=== PATIENT | male | born 1985 | race Caucasian/White ===

== ENCOUNTER 2020-10-12 11:02 | Emergency (ER) | payer OTHER, SELFPAY ==
[2020-10-12 11:03] VITALS: BP 141/100; PULSE 74; RESP 17; TEMP 36.2; O2SAT 97; BMI 40.7
--- NOTE | 2020-10-12 11:21 | ED.DCSUM_ITS ---
History of Present Illness Chief Complaint: Lower Extremity Injury Informant: Patient Narrative: Patient states that he has left knee pain. Symptoms began a little bit last night but were significantly worse this morning. He points to the area just inferior to the patella as the source of his pain. Notes it is tender to palpation. He states that it feels worse with flexion and full extension but if he has a slight bend in it it feels better. He denies any history of gout or arthritis. He denies any fevers. No breaks in the skin. No history of IV drug use. No prior history of DVT PE. Past Medical History - Allergies and Home Meds Allergies/Adverse Reactions: Allergies No Known Allergies Allergy (Verified 10/12/20 11:02) Primary Care Physician: [place] [place] [Primary Care Provider] - Past Medical History: None Surgical History: noncontributory Lives: Spouse/ Significant Other Smoking Status: Current every day smoker Drugs: None Review of Systems General: Denies: Chills, Fever, Sweats Eyes: Denies: Visual changes - bilaterally, Diplopia ENT: Denies: Rhinorrhea, Sore throat Cardiovascular: Denies: Chest pain, Palpitations Respiratory: Denies: Dyspnea, Cough, Dyspnea on exertion Gastrointestinal: Denies: Abdominal pain, Nausea, Vomiting, Diarrhea, Melena, Hematochezia Genitourinary: Denies: Dysuria, Hematuria, Frequency Musculoskeletal: Reports: Extremity Pain. Denies: Back pain Skin: Denies: Rash, Wounds Neurological: Denies: Headache, Weakness, Numbness Physical Exam Vital Signs/Narrative: Vital Signs Temp Pulse Resp BP Pulse Ox 10/12/20 11:03 97.1 F L 74 17 141/100 H 97 Inital Vital Signs reviewed: Yes General: Well nourished, Well developed, No Acute Distress Head: Normocephalic, Atraumatic Eyes: Perrl, EOMI ENT: Moist mucous membranes, No rhinorrhea Neck: Supple, Nontender Cardiovascular: Regular rate, Regular rhythm, No murmurs Respiratory: No distress, CTA bilaterally, Chest nontender Abdomen: Soft, Nontender, Nondistended, Normal bowel sounds Back: Nontender, Normal Inspection Extremities: No edema, Tenderness - She has focal tenderness over the inferior aspect of the patella along the patellar tendon. No effusion. No erythema of the skin., - - Distal to the knee the skin appears normal. Strong dorsalis pe dis posterior tibial pulse. There is no calf tenderness or swelling. Skin: Normal color, No rash Neurological: Alert, Oriented x3, Cranial nerves II-XII grossly intact, Normal Strength, Normal Sensation Psychological: Normal affect, Normal Mood Diagnostic/Tx/Re-eval Clinical Impression(s) from Imaging Studies Knee X-Ray 10/12/20 11:29 IMPRESSION: Normal x-ray examination of the knee. Electronically Signed: Jann Eugene, at 11:39 EST , Service support , - Medical Decision Making X-rays of the knee were negative. Clinically the patient has focal tenderness along the patellar tendon. I do not appreciate any significant swelling. Will use Tristan wrap and crutches as needed. Ice. Did do a short course of steroids and anti-inflammatories. Follow-up with primary care in 1 week if not improved. Return if worsening or concerns. ED Disposition - Plan for ED Patient: Disposition: Home or Assisted Living Diagnosis: Patellar tendonitis of left knee Prescriptions: Ibuprofen [Motrin] 800 mg PO TID PRN PRN #20 tab PRN Reason: Pain Prescription Printed predniSONE tablet 60 mg PO DAILY #15 tab Prescription Printed [facility]errals: [facility] [Primary Care Provider] - 1 Week if not improving
--- NOTE | 2020-10-12 11:29 | RAD_ITS ---
STUDY: X-RAY - LEFT KNEE REASON FOR EXAM: Male, 35 years old. PAIN, NKI TECHNIQUE: 4 view(s) of the knee. COMPARISON: None. FINDINGS: Normal visualized distal femur. Normal visualized proximal tibia and fibula. Normal proximal tibiofibular articulation. Normal medial femorotibial compartment. Normal lateral femorotibial compartment. Normal patellofemoral articulation. The soft tissue structures are unremarkable. RAD/Knee 4 or More Views IMPRESSION: Normal x-ray examination of the knee. Electronically Signed: Jann Knight, at 11:39 EST , Service support ,
== END 2020-10-12 12:06 | disposition home or self-care (01) ==
PROVIDERS: Emergency Provider Emergency Medicine
DX: M76.52 Patellar tendinitis, left knee (principal); F17.200 Nicotine dependence, unspecified, uncomplicated
CPT/HCPCS: 73564; 99283

== ENCOUNTER → 2021-03-30 09:42 | Outpatient (CLI) | payer OTHER, SELFPAY ==
[2021-03-30 12:11] LABS: Absolute Lymphocyte Count 2.39 X10^3/uL (0.83-4.51); Absolute Neutrophil Count 5.3 X10^3/uL (2.0-7.7); Basophil# 0.05 X10^3/uL; Basophil% 0.6 % (0-1); Eosinophil# 0.23 X10^3/uL; Eosinophils% 2.6 % (0-5); Hematocrit 48.4 % (40-54); Hemoglobin 15.5 g/dL (13.0-16.5); Lymphocyte # 2.39 X10^3/ul (0.83-4.51); Lymphocyte % 27.2 % (19-41); Mean Corpuscular Volume 84.2 fL (80-94); Mean Platelet Vol. 8.9 fl (6.2-12.0); Monocyte# 0.69 X10^3/uL; Monocyte% 7.9 % (0-10); NRBC Flagged by Analyzer 0 % (0-5); Neutrophil # 5.25 X10^3/uL (2.7-7.7); Neutrophil % 59.8 % (47-70); Platelet Count 280 K/mm3 (150-450); RBC Distribution Width CV 13.3 % (11.6-14.6); RBC Distribution Width SD 40.6 fl (35.1-43.9); Red Blood Count 5.75 M/mm3 (4.6-6.2); White Blood Count 8.8 K/mm3 (4.4-11.0)
[2021-03-30 12:27] LABS: Hemoglobin A1c 5.9 % (3.8-5.6)
[2021-03-30 12:37] LABS: ALB/GLOB Ratio 1.4 RATIO (0.9-2.4); AST(SGOT) 21 U/L (15-37); Alanine Aminotransfer ALT/SGPT 39 U/L (16-61); Albumin, Serum 4.3 g/dL (3.2-5.0); Alkaline Phosphatase 55 U/L (45-117); Anion Gap 4 (5-15); BUN 13 mg/dL (7-18); BUN/Creat Ratio 14.8 RATIO (10-20); Calcium,Total 9.1 mg/dL (8.5-10.1); Chloride 104 mmol/L (98-107); Cholesterol 185 mg/dL (200); Creatinine, Serum 0.88 mg/dL (0.70-1.30); EST Glomerular Filtration Rate 106 mL/min (>60); Est Glom Filt Rate - Afr Amer 128 mL/min (>60); Globulin 3.1 g/dL (2.2-4.2); Glucose 100 mg/dL (74-106); High Density Lipoprotein 41 mg/dL; Potassium 4.4 mmol/L (3.5-5.1); Protein, Total 7.4 g/dL (6.4-8.2); Sodium Level 140 mmol/L (136-145); Thyroid Stim Hormone (TSH) 1.43 uIU/mL (0.358-3.74); Triglycerides 104 mg/dL; Very Low Density Lipoprotein 21 mg/dL (5-40)
== END ==
PROVIDERS: PCP Family Medicine; Referring Provider Family Medicine; Visit Provider Family Medicine
DX: E66.9 Obesity, unspecified (principal); R73.03 Prediabetes
CPT/HCPCS: 36415; 80053; 80061; 83036; 84443; 85025

== ENCOUNTER 2021-06-27 18:52 | Emergency (ER) | payer OTHER, SELFPAY ==
[2021-06-27 18:53] VITALS: BP 156/98; PULSE 90; RESP 16; TEMP 36.1; O2SAT 97; BMI 46.4
[2021-06-27] MEDS: Ibuprofen 600 MG Tablet PO (19:19)
--- NOTE | 2021-06-27 19:21 | RAD_ITS ---
STUDY: X-RAY - RIGHT FOOT CLINICAL: Male, 36 years old. Injury/Pain TECHNIQUE: 3 view(s) of the foot. COMPARISON: None. FINDINGS: Normal talus, calcaneus, and tarsal bones. Normal visualized subtalar, talonavicular, calcaneocuboid, tarsal and tarsometatarsal articulations. Normal metatarsi. Normal metatarsophalangeal joint of the great toe. Normal tibial and fibular sesamoid bones. Normal interphalangeal joint of the great toe. Normal phalanges of the great toe. Normal second through fifth metatarsophalangeal joints. Normal interphalangeal joints and phalanges of the lesser toes. The soft tissue structures are unremarkable. There is no demonstrated fracture. RAD/Foot min 3 Views IMPRESSION: Normal x-ray examination of the foot. Electronically Signed: Shiv Porras MD at 20:39 EDT , Service support ,
--- NOTE | 2021-06-27 20:54 | ED.VIS.LOWEX ---
HPI History of Present Illness Chief Complaint: Lower Extremity Injury Informant: patient Onset/Context/Timing Onset: Today Narrative Narrative: Patient is a 36-year-old male with history prediabetes, recently started on Metformin, presenting with right great toe pain. Patient states he has had pain over the past few days. Is worse with movement. He Nuys any injury or trauma. He states the pain became more severe yesterday where ibuprofen was not helping anymore. He denies any associated numbness or tingling. He denies any fever or chills. Notes the joint has an ache deep in it and does feel warm. No other complaints at this time. Patient does note that he has been drinking as much water and was drinking on Saturday, 5 days ago which he does not normally do. PFSH PFS Medical History Diabetes Home Medications ibuprofen 600 mg PO Q6H PRN PRN #20 tab 06/27/21 [Rx Last Taken Unknown] metformin 500 mg PO BID 06/27/21 [History Last Taken Unknown] prednisone 40 mg PO DAILY #10 tab 06/27/21 [Rx Last Taken Unknown] Allergy/AdvReac Type Severity Reaction Status Date / Time No Known Allergies Allergy Verified 06/27/21 18:52 Social History Smoking Status: Never smoker ROS ROS ED Constitutional Constitutional ED: Denies chills or fever(s) Eyes Eyes: Denies blurry vision ENT ENT ED: Denies rhinorrhea or sore throat Cardiovascular Cardiovascular: Denies chest pain or palpitations Respiratory/Chest Respiratory/Chest: Denies cough or dyspnea Gastrointestinal Gastrointestinal: Denies abdominal pain or vomiting Musculoskeletal Musculoskeletal: Reports other Details: Right great toe pain ; Denies arthralgias or myalgias Integumentary Denies Abrasions or rash Neurologic Neurologic: Denies headache(s), paresthesias or weakness Psychiatric Psychiatric: Denies depression EXAM Physical Exam Const Vital Signs: 06/27/21 18:53 Temperature 97 F L Temperature Source Temporal Pulse Rate 90 Respiratory Rate 16 Blood Pressure 156/98 H Blood Pressure Mean 117 Pulse Ox 97 Oxygen Delivery Method Room Air Positive well nourished, well developed and obese General Appearance ED: well developed Nutritional Appearance: obese HEENT atraumatic Eyes PERRL Neck full ROM and supple Chest Wall inspection of chest normal Resp normal respiratory effort and clear to auscultation bilaterally Cardio regular rate and regular rhythm Cardio Narrative: 2+ bilateral DP pulses GI non-tender Palpation: soft Extremity full ROM Extremity Narrative: Normal right ankle and proximal foot. Patient has mild edema of the right great toe with pain with passive and active range of motion. There is not short arc pain. There is no tenderness with light palpation. No associated warmth, fluctuance or significant erythema. Skin no wounds Lesions: no lesions Rashes: no rashes MDM MDM MDM Narrative Medical decision making narrative: Patient is evaluated for atraumatic right great toe pain. He does have some associated swelling and tenderness. He is not have pain out of proportion or pain with short arc range of motion. He has normal vital signs. I have a lower suspicion for septic joint. Clinically suspect this is gout. Patient is given a dose of colchicine in the ER, 1.2 mg, as well as 600 mg of ibuprofen. He started on prednisone. Patient declines any opioid pain medication in the ER. X-ray obtained interpreted by myself as well as radiology shows no acute process. Patient will be treated as if this is gout and counseled on signs and symptoms of septic joints and indications to return the emergency room. He verbalizes agreement understand this plan. He is given podiatry for outpatient follow-up. Radiography Diagnostic Testing: Radiology Impression Foot X-Ray 06/27/21 19:21 IMPRESSION: Normal x-ray examination of the foot. Electronically Signed: Shiv Porras MD at 20:39 EDT , Service support , Discharge Plan Triage Chief Complaint: Lower Extremity Injury ED Provider: Nidhi Mcneil Dx/Rx/DC Orders Clinical Impression: Gouty arthritis of right great toe Instructions: ED Gout, ED Gout Diet Prescriptions: New prednisone 20 mg tablet 40 mg PO DAILY Qty: 10 RF: 0 ibuprofen 600 mg tablet 600 mg PO Q6H PRN PRN (Reason: fever or pain) Qty: 20 RF: 0 No Action metformin 500 mg tablet 500 mg PO BID RF: 0 Primary Care Provider: Horacio Walls Referrals: Horacio Walls MD [Primary Care Provider] - Mariluz Paredes DPM [STAFF PHYSICIAN] - Disposition Disposition: Home, Self Care
[2021-06-27 21:02] VITALS: BP 139/83; PULSE 78; RESP 18; O2SAT 97
[2021-06-27] MEDS: Colchicine 0.6 MG TABLET 1.2 MG PO (21:02)
== END 2021-06-27 21:07 | disposition home or self-care (01) ==
PROVIDERS: Emergency Provider Emergency Medicine; PCP Family Medicine
DX: M10.9 Gout, unspecified (principal); E66.9 Obesity, unspecified; E11.9 Type 2 diabetes mellitus without complications; Z79.84 Long term (current) use of oral hypoglycemic drugs
CPT/HCPCS: 73630; 99283

== ENCOUNTER → 2021-07-26 | Outpatient (CLI) | payer OTHER, SELFPAY | END | disposition home or self-care (01) | PROVIDERS: PCP Family Medicine; Visit Provider Family Medicine | DX: Z20.822 Contact with and (suspected) exposure to COVID-19 (principal) | CPT/HCPCS: 87635; U0005; U0003 ==

== ENCOUNTER → 2021-08-02 | Outpatient (CLI) | payer OTHER, SELFPAY | END | disposition home or self-care (01) | PROVIDERS: PCP Family Medicine; Visit Provider Family Medicine | DX: Z20.822 Contact with and (suspected) exposure to COVID-19 (principal) | CPT/HCPCS: 87635; U0005; U0003 ==

== ENCOUNTER → 2021-08-09 | Outpatient (CLI) | payer OTHER, SELFPAY | END | disposition home or self-care (01) | LOC: LABSPEC 12:08 | PROVIDERS: PCP Family Medicine; Referring Provider Family Medicine; Visit Provider Family Medicine | DX: Z20.822 Contact with and (suspected) exposure to COVID-19 (principal) | CPT/HCPCS: 87635; U0005; U0003 ==